=== PATIENT | male | born 1955 | race Caucasian/White ===

== ENCOUNTER 2020-09-09 14:36 | Observation (INO) | payer MEDICARE ==
[~2020-09-09 14:36] MED LIST: Lidocaine 1% PF 5 ML VIAL ONE; Ondansetron PF 4 MG/2 ML Vial ONE; PHENYLEPHRINE-NS 100 MCG/ML 10 ML SYRINGE ONE; PROPOFOL 200 MG/20 ML VIAL ONE; Rocuronium Bromide 10 MG/ML (10ML VIAL) ONE; ePHEDrine 50 MG/ML VIAL ONE
[2020-09-09] MEDS ORDERED: Boostrix 0.5 ML (Tdap) VIAL ONE (15:39)
--- NOTE | 2020-09-09 15:48 | CT ---
EXAM: Brain CTWithout contrast: HISTORY: Injury from a fall head laceration COMPARISON: None FINDINGS: Extensive left frontal scalp injury. No focal mass or midline shift. No intra or extra-axial hemorrhage. Sinuses and mastoids are clear of acute process. IMPRESSION: No mass or bleed or other significant acute intracranial process.
[2020-09-09 16:30] LABS: #Lymphocytes 0.6 thou/uL (1.20-3.40); #Neutrophils 9.6 thou/uL (1.40-6.50); %Basophils 0.1 % (0.0-1.0); %Eosinophils 0.3 % (0.0-10.0); %Monocytes 9.3 % (0.0-10.0); %Neutrophils 85.3 % (42.0-75.0); Hemoglobin 17.7 g/dL (14.0-18.0); Mean Corpuscular HGB CONC 33.8 g/dL (32.0-36.0); Mean Corpuscular Volume 94.6 fL (78.0-98.0); Mean Platelet Volume 8.9 fL (7.4-10.4); Platelet Count 186 thou/uL (130-400); RBC Distribution Width 13.1 % (11.5-14.5); Red Blood Cell (RBC) Count 5.53 mill/uL (4.70-6.10); White Blood Cell (WBC) Count 11.2 thou/uL (4.8-10.8)
[2020-09-09 16:33] LABS: PTT 28.4 sec (22.9-36.1); Prothrombin Time 12.9 sec (12.0-14.7)
[2020-09-09 16:46] LABS: ALT (SGPT) 36 U/L (8-55); AST (SGOT) 37 U/L (5-34); Alkaline Phosphatase 92 U/L (40-110); Anion Gap 14 mmol/L (10-20); BUN (Urea Nitrogen) 11 mg/dL (8.4-25.7); Bilirubin, Total 0.4 mg/dL (0.2-1.2); Calc. Creatinine Clearance 0 mL/min (70-130); Carbon Dioxide 26 mmol/L (23-31); Chloride 102 mmol/L (98-107); Estimated GFR-MDRD 75; Globulin 3.2 g/dL (2.4-3.5); Glucose 110 mg/dL (80-115); Potassium 4.4 mmol/L (3.5-5.1); Protein, Total 7.2 g/dL (5.8-8.1); Sodium 138 mmol/L (136-145)
[2020-09-09] MEDS ORDERED: Dextrose 50% Abboject 50 ML SYRINGE SLOW IVP PRN (19:42)
[2020-09-09] MEDS ORDERED: Ondansetron PF 4 MG/2 ML Vial IVP PRN (19:42)
[2020-09-09] MEDS ORDERED: Dextrose 5% in Water 1,000 ML IV PRN (19:42)
[2020-09-09] MEDS ORDERED: TETANUS AND DIPHTHERIA TOX/PF 0.5 ML DISP.SYRIN IM ONE (19:42)
[2020-09-09] MEDS ORDERED: Morphine 2 MG/ML VIAL SLOW IVP PRN (19:42)
[2020-09-09] MEDS ORDERED: traMADol HCl 50 MG TAB PO PRN (19:44)
--- NOTE | 2020-09-09 20:52 | HP ---
REQUESTING: Dr. Zhao. CONSULTS: Oral maxillofacial surgery, Andres Kinsey DDS, MD. CHIEF COMPLAINT: Tripped and fell, hitting door frame, large scalp laceration, denies loss of consciousness. 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 The patient has been worked up and has had this diagnosis for the last 4 years. The patient also has a history of hypotension. The patient was using his walker today when he lost his balance, falling, hitting his head onto the door frame. The patient has sustained a large laceration to the scalp. The patient had no loss of consciousness. The patient denies any other injuries. The patient's wound is currently bandaged with a pressure bandage and bleeding is controlled at this time. REVIEW OF SYSTEMS: A 10-point review of systems is negative unless otherwise indicated in the above HPI. PAST MEDICAL HISTORY: Autoimmune disease, affecting the myelin sheath, leg weakness and balance issues; hypertension; prostate cancer; and melanoma. SURGICAL HISTORY: Laminectomy L4, L5; prostatectomy. SOCIAL HISTORY: Denies alcohol use. Denies drug use. Denies history of smoking. ALLERGIES: NO KNOWN DRUG ALLERGIES. CURRENT MEDICATIONS: 1. Baclofen 10 mg daily. 2. Anastrozole 1 mg every other week. 3. Flonase as needed. OBJECTIVE: VITAL SIGNS: Blood pressure 134/91, pulse 73, respirations 16, SpO2 of 98% on room air, temperature 98.5. GENERAL: Well-appearing elderly male, awake, alert, in no distress. HEENT: Normocephalic, large deep laceration, approximately 20 cm starting at the left forehead through the lateral aspect of the left eyebrow extending superior and lateral aspect of the scalp. There is exposed galea and skull. Bleeding is controlled with pressure bandage. Pupils are equal bilateral. Pharynx exam is normal. Moist mucous membranes. NECK: No cervical spine tenderness, normal range of motion of neck. Trachea is midline. RESPIRATORY: Bilateral breath sounds clear. No wheezing, rales, or rhonchi. CARDIOVASCULAR: Regular rate, regular rhythm, no murmurs, no pedal edema. ABDOMEN: Soft, nontender, nondistended. EXTREMITIES: Moves all extremities. NEUROVASCULARLY: Intact x4, strength 5/5 in all extremities. NEUROLOGIC: GCS 15, no focal deficits. LABORATORY DATA: WBC 11.2, RBC 5.53, hemoglobin 17.7, hematocrit 52.4, platelets 186. Sodium 138, potassium 4.4, BUN 11, creatinine 1.00, estimated GFR 75, AST 37, ALT 36, alkaline phos 92, albumin 4.0. DIAGNOSTIC DATA: Brain CT, impression, no mass or bleed or other significant acute intracranial process. Extensive left frontal scalp injury. ASSESSMENT: 1. Fall from standing, hitting door frame. 2. Large complex scalp laceration. PLAN: Admit to the surgical floor. N.p.o. with maintenance IV fluids, normal saline at 120 an hour. Oral Maxillofacial Surgery plans to take the patient to the OR for washout and closure of his complex scalp laceration. Pain control. PT and OT to evaluate and treat postop. The plan was discussed with the patient and who agrees. The plan was discussed with the attending, Dr. Morrow. The patient was seen by Dr. Morrow in the emergency room. Job ID: [id number] [facility]
[2020-09-09] MEDS: Sodium Chloride 0.9% 1,000 ML IV SCH (21:45)
[2020-09-09] MEDS: Senokot S 8.6-50 MG TAB PO SCH (21:47)
[2020-09-09] MEDS: Acetaminophen 500 MG TAB PO SCH (21:48)
[2020-09-09] MEDS ORDERED: Fentanyl 250 MCG/5 ML VIAL ONE (21:48)
[2020-09-09] MEDS ORDERED: Phenylephrine 10 MG/ML VIAL ONE (21:49)
[2020-09-09] MEDS ORDERED: Bacitracin Zinc Ointment 30 gm TUBE ONE (21:58)
[2020-09-09] MEDS ORDERED: Lidocaine 1% w/Epinephrine 1:100K 20 ML VIAL ONE (21:58)
[2020-09-09] MEDS ORDERED: Propofol 1,000 MG/100 ML VIAL IV ONE (22:05)
[2020-09-09] MEDS ORDERED: SUGAMMADEX SODIUM 200 MG/2 ML VIAL ONE (22:05)
[2020-09-09] MEDS ORDERED: Propofol 500 MG/50 ML VIAL ONE (22:05)
[2020-09-09 22:45] VITALS: BMI 29.2
[2020-09-09] MEDS ORDERED: Sodium Chloride 0.9% 10 ML ONE (22:50)
[2020-09-10] MEDS ORDERED: Ondansetron HCl/PF 4 MG/2 ML Vial IVP PRN (00:15)
[2020-09-10] MEDS ORDERED: Fentanyl 100 MCG/2 ML VIAL ONE (00:26)
[2020-09-10] MEDS: Acetaminophen 500 MG TAB PO SCH ×2 (02:05→08:53)
[2020-09-10] MEDS: Sodium Chloride 0.9% 1,000 ML IV SCH ×2 (05:08→11:12)
[2020-09-10 05:47] LABS: Hemoglobin 16.4 g/dL (14.0-18.0); Mean Corpuscular HGB CONC 32.6 g/dL (32.0-36.0); Mean Corpuscular Hemoglobin 30.8 pg (27.0-31.0); Mean Corpuscular Volume 94.3 fL (78.0-98.0); Platelet Count 182 thou/uL (130-400); RBC Distribution Width 13.4 % (11.5-14.5); Red Blood Cell (RBC) Count 5.34 mill/uL (4.70-6.10); White Blood Cell (WBC) Count 10.3 thou/uL (4.8-10.8)
[2020-09-10 07:06] LABS: SARS-CoV-2 MS2 Positive; SARS-CoV-2 N Gene Positive; SARS-CoV-2 S Gene Positive; SARS-CoV-2 by NAA DETECTED (NotDetected); SARS-CoV-2 orf1ab Positive
[2020-09-10] MEDS ORDERED: FLU VACC QS2020-21(65YR UP)/PF 240 MCG/0.7 ML SYRINGE IM ONE (09:00)
[2020-09-10] MEDS ORDERED: Baclofen 10 MG TAB PO SCH (09:00)
[2020-09-10] MEDS ORDERED: Polyethylene Glycol 3350 17 GM Packet PO SCH (09:00)
[2020-09-10 09:09] VITALS: BP 112/74
[2020-09-10] MEDS: Senokot S 8.6-50 MG TAB PO SCH (09:20)
[2020-09-10 13:14] VITALS: TEMP 99.6
[2020-09-10] MEDS ORDERED: Acetaminophen 500 MG TAB PO SCH (15:00)
[2020-09-10] MEDS ORDERED: Mometasone Furoate 120 PUFF 220 MCG INH SCH (18:30)
[2020-09-10 18:37] LABS: SARS-CoV-2 MS2 Positive; SARS-CoV-2 N Gene Positive; SARS-CoV-2 S Gene Positive; SARS-CoV-2 by NAA DETECTED (NotDetected); SARS-CoV-2 orf1ab Positive
--- NOTE | 2020-09-11 15:46 | OP ---
DATE OF PROCEDURE: 09/10/2020 PREOPERATIVE DIAGNOSES: 1. A 5 cm left upper eyelid laceration. 2. A 15 cm left forehead scalp laceration. POSTOPERATIVE DIAGNOSES: 1. Complicated 5 cm laceration, left upper eyelid. 2. Complicated laceration, 15 cm in length extending from the left forehead to the left scalp. PROCEDURES PERFORMED: 1. Complicated closure of 5 cm, left upper eyelid laceration. 2. Two complicated closure of 15 cm, left forehead scalp laceration. INDICATION: This is a 65-year-old male with autoimmune disease, which affects his myelin sheaths and his muscles, which leaves him with unsteadiness and tendency to fall. He fell within the past 24 hours and struck his head in such a way to cause a significant laceration extending from the left upper eyelid around and up through the brow, forehead and scalp. He was brought to the operating room at this time for repair of this laceration. PROCEDURE IN DETAIL: The patient was identified in the preoperative holding area and all questions were answered. He was subsequently transferred to the operating room, transferred to the operating room table in supine position. He was subsequently intubated by the anesthesia service with oral endotracheal tube. This tube was then secured in place and his head and neck were prepped and draped in sterile manner. A surgical time-out was performed. Local anesthetic with lidocaine, epinephrine was delivered throughout the left forehead and scalp region. After local anesthetic, the wounds were irrigated copiously with bacitracin infused normal saline. The wounds were also visually inspected and all foreign debris were removed. After this copious washout and detailed debridement, attention was then turned towards closure. The galea was first encountered and 3-0 Vicryl sutures were used to reapproximate the lacerated portions of the galea back into the appropriate position. A 3-0 Vicryl was also used to reapproximate portions of the frontalis muscle where possible along their course of injury as well. After the closure of these deepest layers, attention was then turned to the left upper eyebrow. A 5-0 Prolene stitch was used to reapproximate the superior aspect of the brow in an anatomic position. The same process was performed to align the inferior aspect of the brows well with 5-0 Prolene suture. Attention was then turned to the left upper eyelid laceration and a 4-0 Vicryl was used to close the deep muscular layers of the eyelid laceration. After the deep layers of the eyelid were closed, 5-0 plain gut sutures were then used to reapproximate the skin margins in a passive manner and these sutures were placed in an interrupted fashion. After completion of closure of the upper eyelid, attention was then turned to the forehead and scalp. Buried 4-0 and 3-0 Vicryl sutures were then used to reapproximate the subcutaneous layers of the scalp along the length of the forehead and scalp wound. After the deep layers were closed, the skin margins were passively adapted and attention was turned towards skin closure. The skin was closed with a combination of interrupted and running 4-0 and 5-0 Prolene sutures. This was done along the length of the wound until the entire wound was closed. After completion of closure, the head and face were cleaned. The forehead and scalp wounds were dressed with bacitracin and Telfa and a gauze pressure dressing was placed around the head and face using Kerlix rolls followed by Coban. Ophthalmic antibiotic ointment was then applied to the upper eyelid wound. The patient was then turned over to the Anesthesia Service for emergence and extubation, which ensued without complication. INTRAVENOUS FLUIDS: Please see anesthetic record. ESTIMATED BLOOD LOSS: 20 mL. COMPLICATIONS: None. SPECIMENS: None. DRAINS: None. IMPLANTS: None. FINDINGS: Complex soft tissue wound involving the scalp, forehead, eyebrow, and left upper eyelid with degloving of the scalp in regions and exposure of the cranium and disruption of the galea and frontalis muscle. DISPOSITION: The patient tolerated the procedure well. He was extubated and transferred to the recovery room in good condition. Job ID: [id number]
--- NOTE | 2020-09-12 02:16 | CON ---
DATE OF CONSULTATION: 09/09/2020 CONSULTING PHYSICIAN: Dr. Zhao in the emergency room. HISTORY OF PRESENT ILLNESS: This is a 65-year-old male with a history of an autoimmune disease, it affects myelin sheaths and affects his balance and gait, who had a fall from standing today due to this unsteadiness. Upon falling, he struck his head and experienced a significant laceration stretching from his left upper eyelid through his eyebrow and up into his forehead and scalp. He was evaluated in the emergency room by both emergency room physicians and the Trauma surgery service and it was determined that a closure needed to be accomplished by me, so I was consulted for evaluation and management. PAST MEDICAL HISTORY: Autoimmune disease, hypotension, prostate cancer, melanoma. PAST SURGICAL HISTORY: L4-L5 laminectomy, prostatectomy. HOME MEDICATIONS: 1. Baclofen. 2. Anastrozole. 3. Flonase. ALLERGIES: NO KNOWN DRUG ALLERGIES. SOCIAL HISTORY: Negative for tobacco, alcohol, drugs. REVIEW OF SYSTEMS: Reports discomfort in the left upper eyelid, forehead and scalp region. Otherwise, review of systems negative. PHYSICAL EXAMINATION: VITAL SIGNS: Within normal limits. GENERAL: Alert, oriented x3. No apparent distress. HEENT: Physical exam shows the forehead scalp dressed with a pressure bandage. The patient's extraocular movements are intact and there is no diplopia or change in visual acuity. There is no noted enophthalmos or exophthalmos. Laceration of the left upper eyelid extends down into the orbicularis oculi muscle, but does not appear to go deeper to perforate the septum. No orbital fat or contents able to be visualized. The globe on the left also appears unaffected. The forehead and scalp component of the laceration are deep and in different areas extend to different levels with the portions of the wound extending down to the cranium. The galea has been incised across portions of the wound in addition to areas of the frontalis muscle. On evaluation of the rest of the face, there are no signs of trauma elsewhere. The nose exam is within normal limits. Ear exam is within normal limits. Intraoral exam is within normal limits. NECK: Within normal limits. LABORATORY DATA: Shows white count of 11.2, hemoglobin 17.7, platelets of 186. ASSESSMENT: This is a 65-year-old male status post fall from standing with resultant significant laceration extending from the left upper eyelid through the eyebrow and forehead to a large portion of the scalp. The patient would be taken to the operating room for a washout and closure of the aforementioned wound. The left upper eyelid component of this wound is approximately 5 cm and the component of the wound extending from the eyebrow, forehead and scalp is approximately 15 cm in total length. The patient should be kept n.p.o. Job ID: [id number]
== END 2020-09-10 15:54 | disposition home or self-care (01) ==
LOC: ERS 14:36 → SURG A 18:23
PROVIDERS: ADMIT Surgery; ATTEND Surgery
PROC: 0HQ1XZZ Repair Face Skin, External Approach (ICD-10-PCS; principal; 2020-09-09)
PROC: 0HQ0XZZ Repair Scalp Skin, External Approach (ICD-10-PCS; 2020-09-09)
DX: S01.01XA Laceration without foreign body of scalp, initial encounter (principal); S01.112A Laceration without foreign body of left eyelid and periocular area, initial encounter; D89.89 Other specified disorders involving the immune mechanism, not elsewhere classified; I10 Essential (primary) hypertension; J45.909 Unspecified asthma, uncomplicated; Z79.899 Other long term (current) drug therapy; Z85.46 Personal history of malignant neoplasm of prostate; Z20.828 Contact with and (suspected) exposure to other viral communicable diseases; W01.190A Fall on same level from slipping, tripping and stumbling with subsequent striking against furniture, initial encounter
CPT/HCPCS: 13121; 13122; 13152; 70450; 80053; 80307; 85025; 85027; 85610; 85730; 90471; 90715; 93005; 96365; 97139; 99285; G0378 ×3; U0003 ×2; 36415; 87635; J0690; J2370; J2405; J2704; J3010; J3490

== ENCOUNTER 2020-10-04 20:52 | Inpatient (IN) | payer MEDICARE ==
[~2020-10-04 20:52] MED LIST changes: +Iopamidol-370 76% 500 ML 1 ML ONE; -Lidocaine 1% PF 5 ML VIAL ONE; -Ondansetron PF 4 MG/2 ML Vial ONE; -PHENYLEPHRINE-NS 100 MCG/ML 10 ML SYRINGE ONE; -PROPOFOL 200 MG/20 ML VIAL ONE; -Rocuronium Bromide 10 MG/ML (10ML VIAL) ONE; -ePHEDrine 50 MG/ML VIAL ONE
[2020-10-04 21:43] LABS: #Lymphocytes 0.6 thou/uL (1.20-3.40); #Monocytes 0.6 thou/uL (0.11-0.59); #Neutrophils 5.3 thou/uL (1.40-6.50); %Basophils 0.2 % (0.0-1.0); %Eosinophils 0.1 % (0.0-10.0); %Lymphocytes 9.5 % (21.0-51.0); %Monocytes 8.8 % (0.0-10.0); %Neutrophils 81.4 % (42.0-75.0); Hemoglobin 15.3 g/dL (14.0-18.0); Mean Corpuscular Hemoglobin 31.1 pg (27.0-31.0); Mean Corpuscular Volume 91.4 fL (78.0-98.0); Mean Platelet Volume 8.6 fL (7.4-10.4); Platelet Count 179 thou/uL (130-400); RBC Distribution Width 13.1 % (11.5-14.5); Red Blood Cell (RBC) Count 4.91 mill/uL (4.70-6.10); White Blood Cell (WBC) Count 6.5 thou/uL (4.8-10.8)
[2020-10-04 22:00] LABS: ALT (SGPT) 123 U/L (8-55); AST (SGOT) 103 U/L (5-34); Albumin 3.1 g/dL (3.4-4.8); Alkaline Phosphatase 252 U/L (40-110); Anion Gap 15 mmol/L (10-20); BUN (Urea Nitrogen) 15 mg/dL (8.4-25.7); Bilirubin, Total 0.5 mg/dL (0.2-1.2); Calc. Creatinine Clearance 0 mL/min (70-130); Calcium 7.7 mg/dL (7.8-10.44); Carbon Dioxide 21 mmol/L (23-31); Chloride 103 mmol/L (98-107); Globulin 2.5 g/dL (2.4-3.5); Glucose 138 mg/dL (80-115); Potassium 3.9 mmol/L (3.5-5.1); Protein, Total 5.6 g/dL (5.8-8.1); Sodium 135 mmol/L (136-145)
--- NOTE | 2020-10-04 22:48 | CT ---
CT angiogram chest: 10/04/2020 HISTORY: Covid positive patient, fever TECHNIQUE: Axial CT imaging obtained at 2.5 mm intervals through the chest with IV contrast using CT angiogram protocol. Coronal and oblique sagittal 3-D reformatted imaging obtained. FINDINGS: There is extensive interstitial opacity with groundglass airspace disease throughout both l ungs, left greater than right, consistent with the provided history of Covid pneumonia. Incidental note is made of cholelithiasis and subcentimeter nonobstructing stones within the partiall y imaged right kidney. There is subtle contour irregularity involving the hepatic parenchyma. 9 No pulmonary arterial filling defect is seen to suggest the presence of acute pulmonary arterial embo lism. No axillary lymphadenopathy. Mildly prominent lymph nodes are seen within the superior mediastinum, the subcarinal region, and the right hilar region. Review of the osseous structures demonstrates no worrisome lytic or blastic bone lesion. IMPRESSION: Extensive interstitial and groundglass opacity bilaterally, evidence of bilateral multi l obar infectious pneumonitis, consistent with the provided history of Covid pneumonia. No pulmonary arterial filling defect is seen to suggest the presence of acute pulmonary arterial embolism.
[2020-10-04 23:54] LABS: Bacteria/HPF None Seen HPF (None Seen); Bilirubin Negative (Negative); Blood, Urine Trace (Negative); Clarity Clear (Clear); Glucose, Urine (Dipstick) Normal (Negative); Ketone, Urine Negative (Negative); Leukocyte Negative Leu/uL (Negative); Nitrite Negative (Negative); Protein, Urine (Dipstick) 50 mg/dL (Neg-Trace); Squamous Epithelial 0-3 HPF (0-3); Urobilinogen Normal mg/dL (Less than 2); WBC/HPF 0-3 HPF (0-3)
[2020-10-05 00:06] LABS: Specific Gravity, Urine 1.055 (1.002-1.036)
[2020-10-05] MEDS ORDERED: Cefepime 2 GM VIAL ONE (00:26)
[2020-10-05] MEDS ORDERED: Acetaminophen 500 MG TAB ONE (00:41)
[2020-10-05] MEDS ORDERED: Cefepime 2 GM in Sodium Chloride 0.9% 100 ML IVPB SCH (03:00)
[2020-10-05] MEDS ORDERED: Guaifenesin DM 100-10/5 ML UDCUP PO PRN (03:02)
--- NOTE | 2020-10-05 04:03 | HP ---
REASON FOR ADMISSION: Shortness of breath. HISTORY OF PRESENT ILLNESS: This is a 65-year-old male patient, who has a history of autoimmune disease that affected his ambulation. There is no specific name for the disease. He has been trialing on rituximab and on September 09, he fell, had a laceration to his head, brought to the ER and was admitted to undergo surgical correction. He was screened for COVID-19 and his test came back positive. A couple of days later, he started having fatigue and cough with increased temperature. These symptoms progressed towards him having shortness of breath after coughing and as per his , desaturating while coughing. Otherwise, at rest, he is not requiring oxygen, although he is breathing around 25 breaths per minute. PAST MEDICAL HISTORY: Autoimmune disease that affects his ambulation. He is totally dependent on his to ambulate. SOCIAL HISTORY: He does not smoke. He does not drink alcohol. FAMILY HISTORY: Negative for coronary artery disease. ALLERGIES: NO NOTE OF ANY DRUG ALLERGY. REVIEW OF SYSTEMS: All systems reviewed except the above-mentioned cough and fever, found to be negative. PHYSICAL EXAMINATION: GENERAL: Awake, alert, oriented, does not appear in distress. VITAL SIGNS: His blood pressure is 106/68, pulse of 88, respiratory rate 25, and pulse ox 98% on room air. HEENT: Head is nontraumatic, normocephalic. Pupils are equal, reactive. Extraocular movements are intact. Nonicteric sclerae. Well injected conjunctivae. Oral mucosa normal. Nasal mucosa normal. NECK: Supple. No adenopathy. No murmur. Thyroid is not palpable. Trachea is midline. No supraclavicular adenopathy. HEART: S1 and S2, regular. No murmur. No gallops. No friction rubs. No displacement of PMI. LUNGS: Patchy crackles bilaterally. ABDOMEN: Bowel sounds positive. Nontender abdomen. No hepatosplenomegaly. EXTREMITIES: No lower extremity edema. No cyanosis. NEURO: Cranial nerves 2 through 12 are within normal limits. He does have weakness in his bilateral lower extremities. LABORATORY DATA: Blood work shows WBC of 6.5, hemoglobin 15.3, platelets of 179. INR 1. Sodium 135, potassium 3.9, and bicarb of 21. AST 103, a months ago it was 37; ALT 123, previously 36; alkaline phosphatase 252, previously 92. Troponin 0.016. BNP 13.1. Urinalysis is not showing any evidence of infection. CT of the chest shows excessive interstitial and ground-glass opacity bilaterally. Evidence of bilateral multilobar infectious pneumonitis consistent with provided history of COVID pneumonia. No pulmonary arterial filling defect is seen to suggest presence of acute pulmonary arterial embolism. ASSESSMENT AND PLAN: This is a 65-year-old male patient, presenting with progression of his COVID symptoms and possibly superimposed bacterial infection due to his immunosuppressed state. Pulmonary: The patient to be started on IV cefepime and IV Decadron. We will ask ID to see him for further guidance in a.m. We will check ferritin level, procalcitonin, LDH, and CRP. Rheumatology: The patient is on rituximab, we will hold that medication. For deep venous thrombosis prophylaxis, he will be on Lovenox. Job ID: [id number]
[2020-10-05 04:51] VITALS: BMI 28.2
[2020-10-05 05:05] LABS: #Lymphocytes 0.9 thou/uL (1.20-3.40); #Monocytes 0.6 thou/uL (0.11-0.59); #Neutrophils 5.2 thou/uL (1.40-6.50); %Eosinophils 0.4 % (0.0-10.0); %Lymphocytes 13.1 % (21.0-51.0); %Monocytes 8.5 % (0.0-10.0); %Neutrophils 77.9 % (42.0-75.0); Hemoglobin 15.1 g/dL (14.0-18.0); Mean Corpuscular HGB CONC 35.3 g/dL (32.0-36.0); Mean Corpuscular Hemoglobin 32.5 pg (27.0-31.0); Mean Platelet Volume 8.5 fL (7.4-10.4); Platelet Count 178 thou/uL (130-400); RBC Distribution Width 12.9 % (11.5-14.5); Red Blood Cell (RBC) Count 4.64 mill/uL (4.70-6.10); White Blood Cell (WBC) Count 6.7 thou/uL (4.8-10.8)
[2020-10-05 05:36] LABS: Anion Gap 11 mmol/L (10-20); BUN (Urea Nitrogen) 14 mg/dL (8.4-25.7); Calc. Creatinine Clearance 111 mL/min (70-130); Calcium 7.9 mg/dL (7.8-10.44); Carbon Dioxide 26 mmol/L (23-31); Chloride 101 mmol/L (98-107); Glucose 108 mg/dL (80-115); Potassium 3.8 mmol/L (3.5-5.1); Sodium 134 mmol/L (136-145)
[2020-10-05 08:16] LABS: ALT (SGPT) 124 U/L (8-55); AST (SGOT) 101 U/L (5-34); Albumin 3.1 g/dL (3.4-4.8); Alkaline Phosphatase 222 U/L (40-110); Bilirubin, Direct 0.3 mg/dL (0.1-0.3); Bilirubin, Total 0.5 mg/dL (0.2-1.2)
[2020-10-05] MEDS: Cefepime 2 GM in Sodium Chloride 0.9% 100 ML IVPB SCH ×3 (09:04→23:16)
[2020-10-05] MEDS: Enoxaparin Sodium 40 MG/0.4 ML SYRINGE SC SCH ×2 (09:04→09:27)
[2020-10-05] MEDS: Dexamethasone 4 mg/ml Vial SLOW IVP SCH (09:04)
[2020-10-05] MEDS: Acetaminophen 325 MG TAB PO PRN (10:28)
[2020-10-05] MEDS: Doxycycline 100 MG CAP PO SCH (21:06)
[2020-10-05] MEDS: Baclofen 10 MG TAB PO SCH ×2 (21:06)
--- NOTE | 2020-10-06 08:25 | ULT ---
RIGHT UPPER QUADRANT ULTRASOUND: HISTORY: Elevated LFTs, fever. FINDINGS: The pancreas and left lobe of the liver are obscured by overlying bowel. There is a shadowing gallst one in the neck of the gallbladder. The right lobe of the liver is unremarkable. The common duct me asures 4 mm in diameter. No right-sided hydronephrosis seen. There is a 1.3 x 1.5 x 0.7 cm cyst in the inferior pole of the right kidney. A shadowing 8 mm echogenic focus was seen in the right kidney. No free fluid is seen in the Morison's pouch. IMPRESSION: 1. Cholelithiasis. 2. Nonobstructing right renal calculus. 3. Right renal cyst. POS: OFF
[2020-10-06 08:48] LABS: #Lymphocytes 0.8 thou/uL (1.20-3.40); #Monocytes 0.5 thou/uL (0.11-0.59); #Neutrophils 8.2 thou/uL (1.40-6.50); %Basophils 0.3 % (0.0-1.0); %Eosinophils 0.2 % (0.0-10.0); %Lymphocytes 8.3 % (21.0-51.0); %Neutrophils 86.1 % (42.0-75.0); Hemoglobin 14.7 g/dL (14.0-18.0); Mean Corpuscular HGB CONC 33.3 g/dL (32.0-36.0); Mean Corpuscular Hemoglobin 30.8 pg (27.0-31.0); Mean Corpuscular Volume 92.6 fL (78.0-98.0); Platelet Count 219 thou/uL (130-400); Red Blood Cell (RBC) Count 4.77 mill/uL (4.70-6.10); White Blood Cell (WBC) Count 9.5 thou/uL (4.8-10.8)
[2020-10-06 09:00] LABS: ALT (SGPT) 145 U/L (8-55); AST (SGOT) 107 U/L (5-34); Albumin 2.9 g/dL (3.4-4.8); Alkaline Phosphatase 223 U/L (40-110); Anion Gap 12 mmol/L (10-20); BUN (Urea Nitrogen) 13 mg/dL (8.4-25.7); Bilirubin, Total 0.6 mg/dL (0.2-1.2); Calc. Creatinine Clearance 117 mL/min (70-130); Calcium 8.4 mg/dL (7.8-10.44); Carbon Dioxide 24 mmol/L (23-31); Chloride 102 mmol/L (98-107); Globulin 3.2 g/dL (2.4-3.5); Glucose 104 mg/dL (80-115); Potassium 4.1 mmol/L (3.5-5.1); Protein, Total 6.1 g/dL (5.8-8.1); Sodium 134 mmol/L (136-145)
[2020-10-06] MEDS ORDERED: Aspirin 81 mg Enteric Coated Tablet PO SCH (09:00)
[2020-10-06] MEDS: Dexamethasone 4 mg/ml Vial SLOW IVP SCH (09:10)
[2020-10-06] MEDS: Baclofen 10 MG TAB PO SCH ×2 (09:10→18:04)
[2020-10-06] MEDS: Doxycycline 100 MG CAP PO SCH ×2 (09:10→18:04)
[2020-10-06] MEDS: Cefepime 2 GM in Sodium Chloride 0.9% 100 ML IVPB SCH ×2 (09:11→16:17)
[2020-10-06] MEDS: Enoxaparin Sodium 40 MG/0.4 ML SYRINGE SC SCH ×2 (09:11)
[2020-10-06] MEDS: Acetaminophen 325 MG TAB PO PRN (12:46)
--- NOTE | 2020-10-06 14:41 | CON ---
DATE OF CONSULTATION: 10/06/2020 REASON FOR CONSULTATION: Evaluate for possible persistence of Covid-19. 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 He did receive immunoglobulin with partial response, but then recrudescence and now he is on rituximab having received two doses three weeks apart thus far. He was treated in [place]. His neurological function has not improved or stabilized since rituximab has been started. He is diagnosed with SARS-CoV2 pneumonia in August and has persisted with fever and some respiratory symptoms and that is the main reason for readmission. Denies headaches or sore throat. No back pain. No chest pain. No abdominal pain or diarrhea. No genitourinary symptoms. Somewhat anorectic. Initial findings BP 120/50, temperature 99.6, and O2 saturation 96 on room air. The exam was not particularly remarkable. He was alert and mildly tachypneic. Remainder of the examination were remarkable for breath sounds in without crackles or wheezing as described by the ER physician. Other findings on admission, CBC was fairly normal except for mild neutrophilia and sodium was 135 and creatinine normal. AST, ALT, and alkaline phosphatase were elevated. Albumin 3.1. Urinalysis with normal wbc, rbc with 7 to 10, protein [address] chest with angiogram with extensive interstitial and ground-glass opacity bilaterally. No pulmonary embolism noted. Of note, the patient had a laceration left upper eyelid recently because of fall related to his chronic neurological problem. Currently, Mr. Welch is awake, appears to be in no distress, wanting to go home. Other 10-point review of system as above. MEDICAL HISTORY: 1. Chronic demyelinating polyneuropathy of uncertain etiology, initially treated at [facility], [facility], but now that diagnosis has been placed in question. Currently, on rituximab, has had two should two in two administrations. 2. Recent diagnosis of SARS-CoV-2 pneumonia and this is the beyond the 3rd week of illness. SOCIAL HISTORY: Does not smoke. . FAMILY HISTORY: Noncontributory. ALLERGIES: NONE. MEDICATIONS: Looks at the moment, he is receiving; 1. Doxycycline. 2. Decadron. 3. Cefepime. 4. Baclofen. PHYSICAL EXAMINATION: VITAL SIGNS: T-max 100.7. He is now 05/25/1992. Saturating 99% on room air. He is breathing a little fast at 20 to 10 depending on his effort. SKIN: Exam was normal. He has a peripheral IV access. No Wadsworth catheter. No lymphadenopathy. HEENT: Ocular movements conjugate. Oral cavity normal. NECK: Supple. No jugular vein distention. LUNGS: With scattered inspiratory crackles. No wheezing. HEART: S1 and S2. Regular rate. No S40 and S3. No S2 for S3. ABDOMEN: Soft not distended. No organomegaly. No ascites or bladder distention. EXTREMITIES: No joint inflammatory activity no edema pulses 1+ in dorsalis pedis. Plantar responses are indifferent. He has pretty good strength in the lower extremities. He is oriented. Speech is normal. LABORATORY DATA: The latest labs white cell count 9.5, normal differential. Hemoglobin normal. ASSESSMENT: 1. Chronic demyelinating polyneuropathy of uncertain etiology, on rituximab. 2. Recent SARS-CoV-2 pneumonitis. This is beyond the third week of illness. 3. Persistence of respiratory symptoms and low-grade temperature. DISCUSSION: Differential diagnosis includes the residual pneumonitis from SARS-CoV-2 infection. The second possibility is an alternate and opportunistic process for example Pneumocystis or cytomegalovirus in view of the administration of rituximab or the usual community-acquired pathogens such as Streptococcus pneumoniae, Haemophilus and so on. The next possibility would be a persistence of SARS-CoV-2 infection, which can happen in some patients with immunosuppression. Thit is less likely since one would expect more pronounced hypoxemia. So at this point, I would recommend submitting test for Pneumocystis and CMV. Continue antimicrobial therapy and to be transitioned to oral levofloxacin. Consider discharge planning. Regarding testing for persistence of SARS-CoV-2 that would require viral cultures and I do not think is indicated at this moment, neither available. Regarding isolation precautions, he probably should wear a mask when around other people for the time being until this situation is resolved. Follow up with a phone followup or clinic followup in the next few weeks probably a phone followup to review the results of tests that were submitted. Job ID: [id number] MTDD
--- NOTE | 2020-10-06 16:55 | PDOC.DS.DS ---
Provider - Provider Date of Admission: 10/05/20 00:18 Date of Discharge: 10/06/20 Admitting Provider: Gaurav Childress MD Consultations: Infectious Disease (Dr. Garcia) Primary Care Physician: Cosme Bcuk MD Course - Hospital Course Hospital Course: Discharge diagnosis: 1. Pneumonia 2. Recent COVID-19 viral infection 3. hyponatremia 4. Abnormal liver function tests Hospital course: Patient is a pleasant 65-year-old gentleman who was admitted to the hospital for pneumonia. He was started on intravenous antibiotics as well as steroids. He was seen by infectious disease service. The differential diagnosis included residual pneumonitis from SARS COVID-19 infection or alternate and opportunistic process, for example pneumocystis of cytomegalovirus in view of his use of rituximab or the usual community-acquired pathogens such as Streptococcus pneumonia. Infectious disease service recommended transitioning him to oral levofloxacin. He has been cleared for discharge. CT angiogram of the chest done during this hospitalization showed extensive interstitial and groundglass opacity bilaterally, evidence of bilateral multilobar infectious pneumonitis, confirmed consistent with history of Covid pneumonia. There was no evidence of pulmonary embolism. He also had abnormal liver function tests. Ultrasound of the abdomen showed cholelithiasis, nonobstructing right renal calculus and a right renal cyst. Many thanks for allowing me to participate in your patient's care. Please feel free to contact me with any questions or concerns. Discharge destination: Home Total amount of time spent coordinating this discharge: 25 minutes Resuscitation Status: 10/05/20 03:02 Resuscitation Status Routine Resuscitation Status: FULL: Full Resuscitation - Labs Lab Results: 10/06/20 08:37 10/06/20 08:37 Abnormal Lab Results - Last 48 hrs 10/04/20 21:21: Sodium 135 L, Carbon Dioxide 21 L, Calcium 7.7 L, AST 103 H, ALT 123 H, Alkaline Phosphatase 252 H, Serum Total Protein 5.6 L, Albumin 3.1 L 10/04/20 21:21: MCH 31.1 H, Neutrophils % 81.4 H, Lymphocytes % 9.5 L, Lymphocytes # 0.6 L, Monocytes # 0.6 H 10/04/20 23:32: Ur Specific Adger 1.055 H, Urine Protein 50 A, Urine Blood Trace A, Urine RBC 7-10 A 10/05/20 04:27: Sodium 134 L 10/05/20 04:27: RBC 4.64 L, MCH 32.5 H, Neutrophils % 77.9 H, Lymphocytes % 13.1 L, Lymphocytes # 0.9 L, Monocytes # 0.6 H 10/05/20 04:27: Lactate Dehydrogenase 354 H 10/05/20 04:27: C-Reactive Protein 5.40 H 10/05/20 04:27: Ferritin 1151.01 H 10/05/20 04:30: AST 101 H, ALT 124 H, Alkaline Phosphatase 222 H, Albumin 3.1 L 10/06/20 08:37: Sodium 134 L, AST 107 H, ALT 145 H, Alkaline Phosphatase 223 H, Albumin 2.9 L, Albumin/Globulin Ratio 0.9 L 10/06/20 08:37: Neutrophils % 86.1 H, Lymphocytes % 8.3 L, Neutrophils # 8.2 H, Lymphocytes # 0.8 L Microbiology - Entire Visit 10/05/20 00:19 Venous blood - Left Arm Blood Culture - Preliminary Specimen has been received and culture in progress. No Growth to date. 10/05/20 00:19 Venous blood - Right Arm Blood Culture - Preliminary Specimen has been received and culture in progress. No Growth to date. - Physical Exam Vitals: Vital Signs (12 hours) Temp Pulse Resp BP Pulse Ox 10/06/20 11:30 100.2 F H 91 30 H 93/56 L 99 10/06/20 09:10 99 10/06/20 08:50 98.6 F 82 30 H 119/64 99 Weight Weight 191 lb 3.2 oz Physical Exam: The patient was seen and examined on the day of discharge. Patient denies chest pain or shortness of breath. Vital signs are stable. S1 and S2 are heard. Lungs are clear to auscultation bilaterally. Plan - Discharge Medications Prescriptions: Levofloxacin 750 mg PO DAILY #7 tablet Home Medications: Medication Instructions Recorded Confirmed Type Baclofen 10 mg PO BID 09/09/20 10/05/20 History Aspirin [Ecotrin] 81 mg PO DAILY 10/05/20 10/05/20 History Doxycycline [Vibramycin] 100 mg PO BID 10/05/20 10/05/20 History Levofloxacin 750 mg PO DAILY #7 tablet 10/06/20 Rx Allergies: No Known Allergies Allergy (Verified 10/05/20 04:24) - Discharge Instructions Activity:: Activity as Tolerated Nourishment:: Regular Diet - Follow up Plan Referrals: Cosme Buck MD [Primary Care Provider] - Amilcar Anaya MD [MD Not on Staff] - 3 Days Disposition: HOME Quality - Care Measures CORE MEASURES:: N/A
[2020-10-06 17:16] VITALS: BP 97/66; TEMP 98.6
[2020-10-06 20:08] LABS: SARS-CoV-2 IgG Ab Non-Reactive (NonReactive); SARS-CoV-2 IgG Index 1.38 S/CO (< 1.40)
--- NOTE | 2020-10-07 13:29 | EKG ---
Test Reason : Blood Pressure : / mmHG Vent. Rate : 093 BPM Atrial Rate : 093 BPM P-R Int : 154 ms QRS Dur : 076 ms QT Int : 346 ms P-R-T Axes : 026 004 013 degrees QTc Int : 430 ms Normal sinus rhythm Low voltage QRS Borderline ECG Confirmed by PATRICK PATEL M.D. ([id number]), image editor LULI GOLDMAN ([id number]) on 10/07/2020 1:29:45 PM Referred By: Confirmed By:PATRICK PATEL M.D.
--- NOTE | 2020-10-09 05:27 | PQF ---
CLINICAL DOCUMENTATION CLARIFICATION FORM: Dear : Lyndon Grimm Date / Time: 10/09/20 1682 Please exercise your independent, professional judgment in responding to the clarification form. Clinical indicators are provided on the bottom of this form for your review Please check appropriate box(es): [ x ] Covid Pneumonia [ ] Empirically treating Gram Negative Pneumonia [ ] Empirically treating Anaerobic Pneumonia [ ] Simple Pneumonia [ ] Streptococcus pneumonia [ ] Pneumonia of unknown etiology [ ] Other diagnosis [ ] Unable to determine Physician Signature: Date/Time: For continuity of documentation, please document condition throughout progress notes and discharge summary. Thank You. To be completed by CDI/Coding staff for physician review: Present Clinical Indicators - Signs / Symptoms / Labs Results and Location in Medical Record [X] WBC 6.5, Plt count 179, Neutrophils 81.4, Lactic acid 1.1 Laboratory 10/04 [X] SARS-Cov-2 IgG Ab No Reactive, SARS-Cov-2 IgG Ab index 1.38 Serology 10/06 [X] Blood culture: No growth in 48 hrs Microbiology 10/05 [X] Chest/Thorax CTA: Extensive intertitial and groundglass opacity bilaterally, evidence of bilateral multilobar infectious pneumonitis, consistent with provided hx of covid pneumonia Imaging Dr Fam 10/04 [X] BP 113/64, Pulse 95, Resp 27, Temp 100.8 Vital signs 10/05 [X] tested positive for Covid, sep 09 and has been running a fever and has cough ED notes p2 10/05 [X] Sepsis, Covid Pneumonia ED notes p10 10/05 [X] Progression of his Covid symptoms and possibly superimposed bacterial infection due to his immunosuppressed state H&P p2 10/05 Dr Childress [X] Differential included residual pneumonitis from SARS-Covid or pneumocystis of cytomegalovirus or usual CAP pathogen such as Streptococcus pneumonia DS p1 10/06 Dr Grimm Present Risk Factors Results and Location in Medical Record [X] 65 year-old Male H&P p1 10/05 Dr Childress [X] Autoimmune disease H&P p1 10/05 Dr Childress [X] Hx of Covid pneumonia H&P p1 10/05 Dr Childress Present Treatments Results and Location in Medical Record [X] IV Cefepime 2 gm MAR 10/05 [X] IV Vibramycin 100 mg oral MAR 10/05 [X] IV Decadron 6 mg DEC 29 CDS/Brokerage Manager Signature: Nahomy Barkley Phone #: [phone] Date/Time: 10/09/2020 0526 This is a permanent part of the Medical Record [facility]
--- NOTE | 2020-10-09 05:31 | PQF ---
CLINICAL DOCUMENTATION CLARIFICATION FORM: Dear : Lyndon Grimm Date / Time: 10/09/20 6587 Please exercise your independent, professional judgment in responding to the clarification form. Clinical indicators are provided on the bottom of this form for your review Please check appropriate box(es) to clarify if the following diagnosis has been ruled in our ruled out: Sepsis [ x ] Ruled in diagnosis [ ] Continue to treat [ x ] Resolved [ ] Ruled out diagnosis [ ] Improving [ ] Cannot rule out diagnosis [ ] Other diagnosis [ ] Unable to determine Physician Signature: Date/Time: For continuity of documentation, please document condition throughout progress notes and discharge summary. Thank You To be completed by CDI/Coding staff for physician review: Present Clinical Indicators - Signs / Symptoms / Labs Results and Location in Medical Record [X] WBC 6.5, Plt count 179, Neutrophils 81.4, Lactic acid 1.1 Laboratory 10/04 [X] SARS-Cov-2 IgG Ab No Reactive, SARS-Cov-2 IgG Ab index 1.38 Serology 10/06 [X] Blood culture: No growth in 48 hrs Microbiology 10/05 [X] Chest/Thorax CTA: Extensive intertitial and groundglass opacity bilaterally, evidence of bilateral multilobar infectious pneumonitis, consistent with provided hx of covid pneumonia Imaging Dr Fam 10/04 [X] BP 113/64, Pulse 95, Resp 27, Temp 100.8 Vital signs 10/05 [X] tested positive for Covid, sep 09 and has been running a fever and has cough ED notes p2 10/05 [X] Sepsis, Covid Pneumonia ED notes p10 10/05 [X] Progression of his Covid symptoms and possibly superimposed bacterial infection due to his immunosuppressed state H&P p2 10/05 Dr Childress Present Risk Factors Results and Location in Medical Record [X] 65 year-old Male H&P p1 10/05 Dr Childress [X] Autoimmune disease H&P p1 10/05 Dr Childress [X] Hx of Covid pneumonia H&P p1 10/05 Dr Childress Present Treatments Results and Location in Medical Record [X] IV Cefepime 2 gm MAR 10/05 [X] IV Vibramycin 100 mg oral DEC 29 [X] IV Decadron 6 mg DEC 29 CDS/Healthcare Manager Signature: Nahomy Barkley Phone #: [phone] Date/Time: 10/09/2020 4377 This is a permanent part of the Medical Record [facility]
[2020-10-11 07:16] LABS: CMV DNA-PCR Test Negative (Negative)
== END 2020-10-06 19:08 | disposition home or self-care (01) | DRG 871 ==
LOC: ERS 20:52 → 2SW 10-05 00:18
PROVIDERS: ADMIT Internal Medicine; ATTEND Internal Medicine
DX: A41.89 Other specified sepsis (principal); U07.1 COVID-19; J12.89 Other viral pneumonia; G61.81 Chronic inflammatory demyelinating polyneuritis; E87.1 Hypo-osmolality and hyponatremia; R94.5 Abnormal results of liver function studies; Z86.19 Personal history of other infectious and parasitic diseases; Z79.899 Other long term (current) drug therapy
CPT/HCPCS: 36415; 71275; 76705; 80048; 80053; 80076; 81003; 81015; 82728; 83605; 83615; 83880; 84145; 84484; 85025; 86140; 86769; 87040; 87449; 87497; 93005; 94640; 96365; J0692; J1100; J1650; J3490; J7620; Q9967

== ENCOUNTER 2020-10-11 11:39 | Outpatient (CLI) | payer MEDICARE ==
--- NOTE | 2020-10-11 11:55 | RAD ---
EXAM: Chest PA and lateral: HISTORY: Follow-up multifocal lung parenchymal opacities. COVID positive patient. COMPARISON: 04/15/2017 Correlation: CT angiogram of the chest 10/04/2020 FINDINGS: Heart: Normal cardiac silhouette Aorta: Unremarkable Pulmonary vessels: Normal Costophrenic angles: Costophrenic angles are clear. Lungs: Persistent multi focal interstitial and alveolar opacities. Pneumothorax: No pneumothorax Osseous structures: No osseous abnormalities IMPRESSION: No acute cardiopulmonary process.
== END 2020-10-11 11:40 | disposition home or self-care (01) ==
LOC: BICRAD 11:39
PROVIDERS: ATTEND Internal Medicine Infectious Disease
DX: J18.9 Pneumonia, unspecified organism (principal)
CPT/HCPCS: 71046

== ENCOUNTER 2020-11-06 13:15 | Outpatient (CLI) | payer MEDICARE ==
--- NOTE | 2020-11-06 13:56 | RAD ---
2 views of the chest: 11/06/2020 COMPARISON: 10/11/2020 HISTORY: Covid positive patient, reevaluate Covid pneumonia FINDINGS: Diffuse increased linear interstitial density is noted with superimposed areas of groundgla ss opacity within the mid left lung zone, bilateral perihilar regions, and the right lung base. The degree of interstitial and alveolar opacity has improved bilaterally when compared to the 10/11/2020 exam. No pneumothorax or pleural fluid. No focal consolidation. IMPRESSION: Improving interstitial and groundglass opacity bilaterally consistent with improving bila teral Covid pneumonia.
== END 2020-11-06 13:16 | disposition home or self-care (01) ==
LOC: BICRAD 13:15
PROVIDERS: ATTEND Internal Medicine Infectious Disease
DX: U07.1 COVID-19 (principal)
CPT/HCPCS: 71046

== ENCOUNTER 2021-06-03 00:37 | Inpatient (IN) | payer MEDICARE ==
[2021-06-03 02:52] LABS: Hemoglobin 16.7 g/dL (14.0-18.0); Mean Corpuscular HGB CONC 33.8 g/dL (32.0-36.0); Mean Corpuscular Hemoglobin 31.5 pg (27.0-31.0); Mean Platelet Volume 8.5 fL (7.4-10.4); Platelet Count 207 thou/uL (130-400); RBC Distribution Width 12.6 % (11.5-14.5); White Blood Cell (WBC) Count 6.9 thou/uL (4.8-10.8)
[2021-06-03 03:09] LABS: ALT (SGPT) 41 U/L (8-55); AST (SGOT) 43 U/L (5-34); Albumin 3.9 g/dL (3.4-4.8); Alkaline Phosphatase 115 U/L (40-110); Anion Gap 14 mmol/L (10-20); BUN (Urea Nitrogen) 12 mg/dL (8.4-25.7); Bilirubin, Total 0.3 mg/dL (0.2-1.2); Calc. Creatinine Clearance 0 mL/min (70-130); Calcium 9.2 mg/dL (7.8-10.44); Carbon Dioxide 21 mmol/L (23-31); Chloride 102 mmol/L (98-107); Globulin 3.1 g/dL (2.4-3.5); Glucose 110 mg/dL (80-115); Potassium 4.4 mmol/L (3.5-5.1); Sodium 133 mmol/L (136-145)
[2021-06-03 03:15] LABS: Band 7 % (5-11); Eosinophils 1 % (0-10); Lymphocytes 25 % (21-51); MDiff Complete? YES; Monocytes 15 % (0-10); Neutrophil 51 % (42-75)
[2021-06-03 03:31] LABS: CKMB 1.8 ng/mL (0-6.6)
[2021-06-03] MEDS ORDERED: Aspirin 325 MG TAB ONE (03:32)
[2021-06-03] MEDS ORDERED: Acetaminophen 650 MG Suppository PR PRN (06:39)
[2021-06-03] MEDS ORDERED: Ondansetron ODT 4 MG TAB PO PRN (06:39)
[2021-06-03] MEDS ORDERED: Acetaminophen 325 MG TAB PO PRN (06:39)
[2021-06-03] MEDS ORDERED: Ondansetron PF 4 MG/2 ML Vial IVP PRN (06:39)
[2021-06-03 08:25] LABS: Troponin I 0.336 ng/mL (< 0.028)
[2021-06-03] MEDS: Aspirin Chewable 81 MG TAB PO SCH (08:43)
[2021-06-03] MEDS: Enoxaparin Sodium 40 MG/0.4 ML SYRINGE SC SCH (08:43)
[2021-06-03] MEDS ORDERED: Iopamidol-370 76% 500 ML 1 ML ONE (08:43)
[2021-06-03 08:45] VITALS: BMI 29.5
[2021-06-03 11:14] LABS: Troponin I 1.921 ng/mL (< 0.028)
[2021-06-03] MEDS: Sodium Chloride 0.9% 1,000 ML IV SCH (21:55)
[2021-06-04 04:00] LABS: SARS-CoV-2 NAA Rapid Test Not Detected (NotDetected)
[2021-06-04 05:22] LABS: Hemoglobin 14.6 g/dL (14.0-18.0); Mean Corpuscular HGB CONC 32.3 g/dL (32.0-36.0); Mean Corpuscular Hemoglobin 30.3 pg (27.0-31.0); Mean Platelet Volume 8.5 fL (7.4-10.4); Platelet Count 204 thou/uL (130-400); RBC Distribution Width 12.5 % (11.5-14.5); Red Blood Cell (RBC) Count 4.82 mill/uL (4.70-6.10); White Blood Cell (WBC) Count 5.7 thou/uL (4.8-10.8)
[2021-06-04 05:31] LABS: Anion Gap 11 mmol/L (10-20); BUN (Urea Nitrogen) 20 mg/dL (8.4-25.7); Calc. Creatinine Clearance 111 mL/min (70-130); Calcium 8.7 mg/dL (7.8-10.44); Carbon Dioxide 22 mmol/L (23-31); Chloride 106 mmol/L (98-107); Glucose 107 mg/dL (80-115); Potassium 4.1 mmol/L (3.5-5.1); Sodium 135 mmol/L (136-145)
[2021-06-04 06:45] LABS: Band 14 % (5-11); Eosinophils 4 % (0-10); Lymphocytes 21 % (21-51); MDiff Complete? YES; Monocytes 8 % (0-10); Neutrophil 53 % (42-75)
[2021-06-04] MEDS: Aspirin Chewable 81 MG TAB PO SCH (07:24)
[2021-06-04] MEDS: Enoxaparin Sodium 40 MG/0.4 ML SYRINGE SC SCH (07:24)
[2021-06-04] MEDS: Sodium Chloride 0.9% 1,000 ML IV SCH (07:26)
[2021-06-04] MEDS ORDERED: Verapamil 5 MG/2 ML VIAL ONE (09:53)
[2021-06-04] MEDS ORDERED: Lidocaine 1% (PF) 30 ML VIAL ONE (09:53)
[2021-06-04] MEDS ORDERED: Heparin 10,000 UNITS/ 10 ML VIAL ONE (09:53)
[2021-06-04] MEDS ORDERED: Nitroglycerin 100MG/250ML BOT 250 ML ONE (09:53)
[2021-06-04] MEDS ORDERED: Sodium Chloride 0.9% 200 ML IV PRN (11:09)
[2021-06-04] MEDS ORDERED: Nitroglycerin 0.4 MG TAB (25 Tab Bottle) SL PRN (11:09)
[2021-06-04] MEDS ORDERED: Acetaminophen/Codeine 30-300mg Tablet PO PRN ×2 (11:09)
[2021-06-04] MEDS ORDERED: Digoxin 0.25 MG TAB PO SCH (11:15)
[2021-06-04] MEDS ORDERED: Sodium Chloride 0.9% 1,000 ML IV SCH (11:15)
[2021-06-04 15:50] VITALS: BP 110/71; TEMP 98
== END 2021-06-04 18:19 | disposition home or self-care (01) | DRG 281 ==
LOC: ERS 00:37 → ERHOLD 03:58 → 2SE 07:16 → OBSVTOIN 06-04 07:25
PROVIDERS: ADMIT Student in an Organized Health Care Education/Training Program; ATTEND Internal Medicine
PROC: 4A023N7 Measurement of Cardiac Sampling and Pressure, Left Heart, Percutaneous Approach (ICD-10-PCS; principal; 2021-06-04)
PROC: B2151ZZ Fluoroscopy of Left Heart using Low Osmolar Contrast (ICD-10-PCS; 2021-06-04)
PROC: B2111ZZ Fluoroscopy of Multiple Coronary Arteries using Low Osmolar Contrast (ICD-10-PCS; 2021-06-04)
DX: I21.4 Non-ST elevation (NSTEMI) myocardial infarction (principal); E87.1 Hypo-osmolality and hyponatremia; Z20.822 Contact with and (suspected) exposure to COVID-19; D89.89 Other specified disorders involving the immune mechanism, not elsewhere classified; Z86.16 Personal history of COVID-19; Z79.82 Long term (current) use of aspirin; Z79.899 Other long term (current) drug therapy; Z85.46 Personal history of malignant neoplasm of prostate
CPT/HCPCS: 36415; 71045; 71275; 80048; 80053; 82553; 83880; 84484; 85025; 85379; 93005; 93458; 94760; G0378; J1644; J2001; Q9967; U0002; U0005

== ENCOUNTER 2022-06-14 11:42 | Outpatient (CLI) | payer MEDICARE ==
[2022-06-14 12:57] LABS: Mean Corpuscular HGB CONC 33.1 g/dL (32.0-36.0); Mean Corpuscular Hemoglobin 27.4 pg (27.0-33.0); Mean Corpuscular Volume 82.9 fl (81.2-95.1); Mean Platelet Volume 10.6 fl (7.4-10.4); Platelet Count 231 10x3/uL (150-450); RBC Distribution Width 16.8 % (11.5-14.5); Red Blood Cell (RBC) Count 5.84 10x6/uL (4.32-5.72); White Blood Cell (WBC) Count 6.7 10x3/uL (3.5-10.5)
[2022-06-14 13:10] LABS: Anion Gap 15 mmol/L (10-20); BUN (Urea Nitrogen) 18 mg/dL (8.4-25.7); Calc. Creatinine Clearance 0 mL/min (70-130); Calcium 9.4 mg/dL (7.8-10.44); Carbon Dioxide 25 mmol/L (23-31); Chloride 106 mmol/L (98-107); Estimated GFR 90; Glucose 89 mg/dL (80-115); Potassium 4.7 mmol/L (3.5-5.1); Sodium 141 mmol/L (136-145)
== END 2022-06-14 11:43 | disposition home or self-care (01) ==
LOC: LABBT 11:42
PROVIDERS: ATTEND Otolaryngology Plastic Surgery within the Head & Neck
DX: Z01.818 Encounter for other preprocedural examination (principal); Z20.822 Contact with and (suspected) exposure to COVID-19
CPT/HCPCS: 80048; 85027; 87811; 93005; 93010

== ENCOUNTER 2022-06-19 06:46 | Day surgery (SDC) | payer MEDICARE ==
[2022-06-17 11:27] VITALS: BMI 29.5
[2022-06-19] MEDS ORDERED: Oxymetazoline HCl 0.05% (30 ML BOT) ONE (08:30)
[2022-06-19] MEDS ORDERED: Bupivacaine/Epinephrine 0.25% 30 ML VIAL ONE (08:30)
[2022-06-19] MEDS ORDERED: fentaNYL Citrate/PF 100 MCG/2 ML SYRINGE ONE (08:32)
[2022-06-19] MEDS ORDERED: Ondansetron PF 4 MG/2 ML Vial ONE (09:19)
[2022-06-19] MEDS ORDERED: Lidocaine 1% MPF 2 ML VIAL ONE (09:19)
[2022-06-19] MEDS ORDERED: Dexamethasone 20 MG/5 ML VIAL ONE (09:19)
[2022-06-19] MEDS ORDERED: Rocuronium Bromide 10 MG/ML (10ML VIAL) ONE (09:19)
[2022-06-19] MEDS ORDERED: ePHEDrine 50 MG/ML VIAL ONE (09:19)
[2022-06-19] MEDS ORDERED: PROPOFOL 200 MG/20 ML VIAL ONE (09:19)
[2022-06-19] MEDS ORDERED: SUGAMMADEX SODIUM 200 MG/2 ML VIAL ONE (09:32)
[2022-06-19] MEDS ORDERED: Bacitracin Zinc Ointment 30 gm TUBE ONE (09:54)
== END 2022-06-19 11:51 | disposition home or self-care (01) ==
LOC: SDC 06:46
PROVIDERS: ATTEND Otolaryngology Plastic Surgery within the Head & Neck
PROC: 09U887Z Supplement Left Tympanic Membrane with Autologous Tissue Substitute, Via Natural or Artificial Opening Endoscopic (ICD-10-PCS; principal; 2022-06-19)
PROC: 097G8ZZ Dilation of Left Eustachian Tube, Via Natural or Artificial Opening Endoscopic (ICD-10-PCS; 2022-06-19)
PROC: 097F8ZZ Dilation of Right Eustachian Tube, Via Natural or Artificial Opening Endoscopic (ICD-10-PCS; 2022-06-19)
DX: H69.83 Other specified disorders of Eustachian tube, bilateral (principal); H72.02 Central perforation of tympanic membrane, left ear; H90.72 Mixed conductive and sensorineural hearing loss, unilateral, left ear, with unrestricted hearing on the contralateral side; H93.13 Tinnitus, bilateral; Z79.811 Long term (current) use of aromatase inhibitors; Z79.899 Other long term (current) drug therapy
CPT/HCPCS: 69620; 69706; C1726; J1100; J2405; J2704; J3490

== ENCOUNTER 2022-12-28 16:37 | Inpatient (IN) | payer MEDICARE ==
[~2022-12-28 16:37] MED LIST changes: +ISOVUE-370 76%-LOCM 500 ML MDV (1 ML CHARGE) ONE; -Iopamidol-370 76% 500 ML 1 ML ONE
[2022-12-28 17:28] LABS: #Basophils 0.1 thou/uL (0.0-0.2); #Eosinphils 0.2 thou/uL (0.0-0.7); #Lymphocytes 1.9 thou/uL (1.20-3.40); #Monocytes 0.7 thou/uL (0.11-0.59); %Basophils 1.1 % (0.0-1.0); %Eosinophils 3.6 % (0.0-10.0); %Lymphocytes 27.6 % (21.0-51.0); %Neutrophils 57.7 % (42.0-75.0); Hemoglobin 15.6 g/dL (14.0-18.0); Mean Corpuscular HGB CONC 32.7 g/dL (32.0-36.0); Mean Corpuscular Hemoglobin 30.5 pg (27.0-31.0); Mean Corpuscular Volume 93.2 fl (78.0-98.0); Platelet Count 228 10x3/uL (130-400); RBC Distribution Width 13.4 % (11.5-14.5); Red Blood Cell (RBC) Count 5.13 mill/uL (4.70-6.10); White Blood Cell (WBC) Count 6.9 10x3/uL (4.8-10.8)
[2022-12-28 17:49] LABS: ALT (SGPT) 35 U/L (8-55); AST (SGOT) 32 U/L (5-34); Albumin 3.8 g/dL (3.4-4.8); Alkaline Phosphatase 120 U/L (40-110); Anion Gap 13 mmol/L (10-20); BUN (Urea Nitrogen) 14 mg/dL (8.4-25.7); Bilirubin, Total 0.2 mg/dL (0.2-1.2); Calc. Creatinine Clearance 0 mL/min (70-130); Carbon Dioxide 25 mmol/L (23-31); Chloride 104 mmol/L (98-107); Estimated GFR 92; Glucose 131 mg/dL (80-115); Potassium 4.3 mmol/L (3.5-5.1); Protein, Total 6.8 g/dL (5.8-8.1); Sodium 138 mmol/L (136-145)
[2022-12-28] MEDS ORDERED: Apixaban 5 MG TAB PO SCH (20:30)
[2022-12-29 00:52] VITALS: BMI 29.6
[2022-12-29] MEDS ORDERED: Acetaminophen 325 MG TAB PO PRN (03:21)
[2022-12-29] MEDS ORDERED: Ondansetron PF 4 MG/2 ML Vial IVP PRN (03:21)
[2022-12-29] MEDS ORDERED: Metoprolol Tartrate 25 MG TAB PO SCH (03:30)
[2022-12-29 05:28] LABS: #Basophils 0.1 thou/uL (0.0-0.2); #Eosinphils 0.3 thou/uL (0.0-0.7); #Monocytes 0.9 thou/uL (0.11-0.59); #Neutrophils 3.7 thou/uL (1.40-6.50); %Basophils 1.3 % (0.0-1.0); %Eosinophils 4.1 % (0.0-10.0); %Lymphocytes 29.2 % (21.0-51.0); %Monocytes 12.2 % (0.0-10.0); %Neutrophils 53.3 % (42.0-75.0); Mean Corpuscular Hemoglobin 30.6 pg (27.0-31.0); Mean Corpuscular Volume 92.8 fl (78.0-98.0); Mean Platelet Volume 8.1 fL (7.4-10.4); Platelet Count 218 10x3/uL (130-400); RBC Distribution Width 13.4 % (11.5-14.5); Red Blood Cell (RBC) Count 4.89 mill/uL (4.70-6.10)
[2022-12-29 05:45] LABS: Anion Gap 11 mmol/L (10-20); BUN (Urea Nitrogen) 12 mg/dL (8.4-25.7); Calc. Creatinine Clearance 108 mL/min (70-130); Calcium 8.6 mg/dL (7.8-10.44); Carbon Dioxide 27 mmol/L (23-31); Chloride 104 mmol/L (98-107); Estimated GFR 95; Glucose 103 mg/dL (80-115); Potassium 4.1 mmol/L (3.5-5.1); Sodium 138 mmol/L (136-145)
[2022-12-29 05:51] LABS: Troponin I Less than 0.010 ng/mL (< 0.028)
[2022-12-29] MEDS: Metoprolol Tartrate 25 MG TAB PO SCH (20:20)
[2022-12-30 05:39] LABS: #Basophils 0.1 thou/uL (0.0-0.2); #Eosinphils 0.2 thou/uL (0.0-0.7); #Monocytes 0.9 thou/uL (0.11-0.59); #Neutrophils 3.4 thou/uL (1.40-6.50); %Basophils 1.3 % (0.0-1.0); %Eosinophils 3.5 % (0.0-10.0); %Lymphocytes 30.4 % (21.0-51.0); %Monocytes 13.2 % (0.0-10.0); %Neutrophils 51.7 % (42.0-75.0); Hemoglobin 15.3 g/dL (14.0-18.0); Mean Corpuscular HGB CONC 31.9 g/dL (32.0-36.0); Mean Corpuscular Hemoglobin 29.7 pg (27.0-31.0); Mean Corpuscular Volume 93.1 fl (78.0-98.0); Platelet Count 240 10x3/uL (130-400); RBC Distribution Width 13.5 % (11.5-14.5); Red Blood Cell (RBC) Count 5.13 mill/uL (4.70-6.10); White Blood Cell (WBC) Count 6.5 10x3/uL (4.8-10.8)
[2022-12-30 05:59] LABS: Anion Gap 12 mmol/L (10-20); BUN (Urea Nitrogen) 11 mg/dL (8.4-25.7); Calc. Creatinine Clearance 107 mL/min (70-130); Calcium 8.8 mg/dL (7.8-10.44); Carbon Dioxide 25 mmol/L (23-31); Chloride 103 mmol/L (98-107); Estimated GFR 95; Glucose 94 mg/dL (80-115); Sodium 136 mmol/L (136-145)
[2022-12-30] MEDS: Metoprolol Tartrate 25 MG TAB PO SCH (20:23)
[2022-12-30] MEDS: Apixaban 5 MG TAB PO SCH (20:23)
[2022-12-31] MEDS: Apixaban 5 MG TAB PO SCH (08:38)
[2022-12-31 11:36] VITALS: BP 101/59; TEMP 98.4
[2023-01-04] MEDS ORDERED: Apixaban 5 MG TAB PO SCH (21:00)
== END 2022-12-31 13:12 | disposition home or self-care (01) | DRG 280 ==
LOC: ERS 16:37 → 2NO 22:50 → OBSVTOIN 12-30 13:20
PROVIDERS: ADMIT Internal Medicine; ATTEND Internal Medicine
DX: I82.412 Acute embolism and thrombosis of left femoral vein (principal); I26.94 Multiple subsegmental thrombotic pulmonary emboli without acute cor pulmonale; I21.4 Non-ST elevation (NSTEMI) myocardial infarction; I47.1 Supraventricular tachycardia; I82.432 Acute embolism and thrombosis of left popliteal vein; Z20.822 Contact with and (suspected) exposure to COVID-19; Z85.46 Personal history of malignant neoplasm of prostate; Z85.820 Personal history of malignant melanoma of skin; Z79.899 Other long term (current) drug therapy; Z90.79 Acquired absence of other genital organ(s)
CPT/HCPCS: 36415; 71275; 80048; 80053; 83880; 84484; 85025; 93005; 93306; 96372; G0378; J1650; Q9966; U0003; U0005

== ENCOUNTER 2023-05-19 13:07 | Outpatient (CLI) | payer MEDICARE | END 2023-05-19 13:08 | disposition home or self-care (01) | LOC: ULT 13:07 | DX: I47.1 Supraventricular tachycardia (principal); R06.02 Shortness of breath; R94.31 Abnormal electrocardiogram [ECG] [EKG]; I82.409 Acute embolism and thrombosis of unspecified deep veins of unspecified lower extremity; I07.1 Rheumatic tricuspid insufficiency; I82.402 Acute embolism and thrombosis of unspecified deep veins of left lower extremity | CPT/HCPCS: 93306; 93970 ==

== ENCOUNTER 2024-05-11 11:07 | Outpatient (CLI) | payer MEDICARE ==
[2024-05-11 13:04] LABS: #Basophils 0.06 10x3/uL (0.0-0.2); #Eosinphils 0.11 10x3/uL (0.0-0.5); #Monocytes 0.69 10x3/uL (0.0-1.1); #Neutrophils 4.79 10x3/uL (1.5-8.4); %Basophils 0.9 % (0.0-2.0); %Eosinophils 1.6 % (0.0-6.0); %Lymphocytes 18.3 % (18.0-47.0); %Neutrophils 69.1 % (40.0-75.0); Hematocrit 49.4 % (38.8-50.0); Hemoglobin 16.5 g/dL (13.5-17.5); Mean Corpuscular HGB CONC 33.4 g/dL (32.0-36.0); Mean Corpuscular Hemoglobin 26.7 pg (27.0-33.0); Mean Corpuscular Volume 80.1 fL (81.2-95.1); Mean Platelet Volume 10.1 fL (7.4-10.4); Platelet Count 284 10x3/uL (150-450); RBC Distribution Width 18.4 % (11.5-14.5); Red Blood Cell (RBC) Count 6.17 10x6/uL (4.32-5.72); White Blood Cell (WBC) Count 6.9 10x3/uL (3.5-10.5)
[2024-05-11 13:24] LABS: Anion Gap 13 mmol/L (10-20); BUN (Urea Nitrogen) 13 mg/dL (8.4-25.7); Calc. Creatinine Clearance 0 mL/min (70-130); Calcium 9.6 mg/dL (7.8-10.44); Carbon Dioxide 28 mmol/L (23-31); Chloride 103 mmol/L (98-107); Estimated GFR 89; Glucose 102 mg/dL (83-110); Potassium 4.7 mmol/L (3.5-5.1); Sodium 139 mmol/L (136-145)
== END 2024-05-11 11:08 | disposition home or self-care (01) ==
LOC: LABBT 11:07
PROVIDERS: ATTEND Orthopaedic Surgery
DX: Z01.818 Encounter for other preprocedural examination (principal); S46.811A Strain of other muscles, fascia and tendons at shoulder and upper arm level, right arm, initial encounter
CPT/HCPCS: 80048; 85025; 93005; 93010

== ENCOUNTER → 2024-05-14 | Day surgery (SDC) | payer MEDICARE ==
[2024-05-11 11:52] VITALS: BMI 29.5
[~2024-05-14] MED LIST changes: +Bupivacaine PF 0.5% 30 ML VIAL ONE; +CEFAZOLIN 2 GM VIAL ONE; -ISOVUE-370 76%-LOCM 500 ML MDV (1 ML CHARGE) ONE; +Lidocaine 1% MPF 2 ML VIAL ONE; +Lidocaine 1% PF 5 ML VIAL ONE; +Lidocaine 2% PF 5 ML VIAL ONE; +Midazolam HCl 2 mg/2 ml Vial ONE; +Ondansetron PF 4 MG/2 ML Vial ONE; +PROPOFOL 20 ML ONE; +Rocuronium Bromide 10 MG/ML (10ML VIAL) ONE; +Sodium Chloride 0.9% 100 ML ONE; +Vancomycin (BATCH) 1.5 GM/300 ML BAG ONE; +ePHEDrine Sulfate 50 MG/10 ML VIAL ONE; +fentaNYL 50 mcg/mL 1 mL Vial ONE; +fentaNYL PF 100 MCG/2 ML SYRINGE ONE
== END ==
LOC: SDC 10:05
PROVIDERS: ATTEND Orthopaedic Surgery
PROC: 0LS30ZZ Reposition Right Upper Arm Tendon, Open Approach (ICD-10-PCS; principal; 2024-05-14)
DX: S46.811A Strain of other muscles, fascia and tendons at shoulder and upper arm level, right arm, initial encounter (principal); S46.221A Laceration of muscle, fascia and tendon of other parts of biceps, right arm, initial encounter; G47.30 Sleep apnea, unspecified; I95.9 Hypotension, unspecified; C61 Malignant neoplasm of prostate; Z90.79 Acquired absence of other genital organ(s); Z98.890 Other specified postprocedural states; Z88.8 Allergy status to other drugs, medicaments and biological substances; X58.XXXA Exposure to other specified factors, initial encounter; Z79.899 Other long term (current) drug therapy
CPT/HCPCS: 23410; 23430; 64415; A6223; C1713; C1894; J0665; J2001; J2250; J2405; J2704; J3010; J3370

== ENCOUNTER 2025-05-27 09:57 | Outpatient (CLI) | payer MEDICARE | END 2025-05-27 09:58 | disposition home or self-care (01) | LOC: RAD 09:57 | PROVIDERS: ATTEND Physical Medicine & Rehabilitation | DX: I69.891 Dysphagia following other cerebrovascular disease (principal); G12.23 Primary lateral sclerosis | CPT/HCPCS: 74230 ==